=== PATIENT | female | born 1980 | race African-American/Black ===

== ENCOUNTER 2018-06-28 17:19 | Emergency (ER) | payer MEDICAID ==
[~2018-06-28] VITALS: Ht 172.7 cm; Wt 100.0 kg
[2018-06-28 17:39] VITALS: BP 247/140
== END 2018-06-28 20:50 | disposition left against medical advice (07) ==
LOC: ER 17:35
DX: H92.02 Otalgia, left ear (principal); Z53.21 Procedure and treatment not carried out due to patient leaving prior to being seen by health care provider

== ENCOUNTER 2018-11-19 17:36 | Emergency (ER) | payer OTHER, MEDICAID ==
[~2018-11-19] VITALS: Ht 170.2 cm; Wt 100.0 kg
[2018-11-19] MEDS ORDERED: ACETAMINOPHEN WITH CODEINE 300/30MG TABLET PO ONE (20:30)
[2018-11-19 21:06] VITALS: BP 182/94
== END 2018-11-19 21:26 | disposition home or self-care (01) ==
LOC: ER 19:02
DX: S62.665A Nondisplaced fracture of distal phalanx of left ring finger, initial encounter for closed fracture (principal); I10 Essential (primary) hypertension; Y04.0XXA Assault by unarmed brawl or fight, initial encounter; Y93.89 Activity, other specified; Y92.018 Other place in single-family (private) house as the place of occurrence of the external cause
CPT/HCPCS: 29130; 73140; 99283

== ENCOUNTER 2023-11-13 22:18 | Inpatient (IN) | payer OTHER, MEDICAID ==
[~2023-11-13] VITALS: Ht 177.8 cm; Wt 97.5 kg
[2023-11-13 23:06] LABS: CLARITY URINE CLEAR (CLEAR); COLOR URINE YELLOW (YELLOW); GLUCOSE URINE NEGATIVE (NEGATIVE); KETONES URINE NEGATIVE (NEGATIVE); LEUKOCYTE ESTERASE URINE NEGATIVE (NEGATIVE); NITRITE URINE NEGATIVE (NEGATIVE); OCCULT BLOOD URINE NEGATIVE (NEGATIVE); PROTEIN URINE 2+ (NEGATIVE); SPECIFIC GRAVITY URINE 1.013 (1.005-1.030); UROBILINOGEN URINE 0.2 E.U./dL (0.2-1.0)
[2023-11-13 23:14] LABS: *AMPHETAMINES SCREEN URINE NEGATIVE (NEGATIVE); *BARBITURATES SCREEN URINE NEGATIVE (NEGATIVE); *BENZODIAZEPINES SCREEN URINE NEGATIVE (NEGATIVE); *COCAINE SCREEN URINE NEGATIVE (NEGATIVE)
[2023-11-13 23:15] LABS: EOSINOPHILS % 1.5 % (0.0-5.0); HEMATOCRIT. 37.3 % (36.0-48.0); HEMOGLOBIN. 11.9 g/dL (12.0-16.0); LYMPHOCYTES % 26.8 % (20.0-50.0); MEAN CORPUSCULAR HEMOGLOBIN 28.3 pg (28.0-32.0); MEAN CORPUSCULAR HGB CONC 31.9 g/dL (31.0-37.0); MEAN CORPUSCULAR VOLUME 88.7 fL (81.0-99.0); MEAN PLATELET VOLUME 8.3 fl (7.4-10.4); MONOCYTES % 4.8 % (2.0-8.0); NEUTROPHILS % 65.9 % (40.0-76.0); PLATELET 385 x1000/uL (130-400); RED BLOOD CELL COUNT 4.21 mill/uL (4.2-5.4); RED CELL DISTRIBUTION WIDTH 14.8 % (11.6-14.6); WHITE BLOOD COUNT 7.5 x1000/uL (4.5-11.0)
[2023-11-13 23:15] LABS: CANNABINOID URINE SCREEN NEGATIVE (NEGATIVE); ECSTASY MDMA SCREEN URINE NEGATIVE (NEGATIVE); METHADONE URINE SCREEN NEGATIVE (NEGATIVE); OPIATES URINE SCREEN NEGATIVE (NEGATIVE); PHENCYCLIDINE URINE SCREEN NEGATIVE (NEGATIVE)
[2023-11-13] MEDS: LABETALOL 5MG/ML 4ML INJ IV ONE (23:17)
[2023-11-13 23:20] LABS: CHLORIDE 104 mEq/L (98-107); POTASSIUM 3.2 mEq/L (3.5-5.1); SODIUM 137 mEq/L (136-145)
[2023-11-13 23:21] LABS: CARBON DIOXIDE 25 mEq/L (21-32)
[2023-11-13 23:22] LABS: CALCIUM 9.8 mg/dL (8.7-10.4)
[2023-11-13 23:26] LABS: GLUCOSE 140 mg/dL (70-105); PROTHROMBIN TIME 10.7 sec (9.6-11.0)
[2023-11-13 23:27] LABS: TROPONIN I HIGH SENSITIVITY 25 ng/L (3.0-34); UREA NITROGEN BLOOD 14 mg/dL (9-23)
[2023-11-13 23:28] LABS: ALANINE AMINOTRANSFERASE 19 IU/L (10-49); ALBUMIN 5.1 g/dL (3.2-4.8); ASPARTATE AMINOTRANSFERASE 18 IU/L (<34)
[2023-11-13 23:29] LABS: BILIRUBIN TOTAL 0.3 mg/dL (0.1-1.0); PROTEIN TOTAL 8.6 g/dL (6.0-8.3)
[2023-11-13 23:34] LABS: BACTERIA URINE 1+; RBC URINE 0-2 /hpf (0-2); SQUAMOUS EPITHELIAL CELL URINE FEW /lpf (RARE/1+); WBC URINE 0-2 /hpf (0-2)
[2023-11-14 00:16] LABS: BILIRUBIN DIRECT < 0.1 mg/dL (<=3.0); ETHANOL BLOOD < 10 mg/dL (<10)
[2023-11-14] MEDS: LABETALOL 5MG/ML 4ML INJ IV NR (01:46)
[2023-11-14 01:49] LABS: TROPONIN I HIGH SENSITIVITY 28 ng/L (3.0-34)
[2023-11-14] MEDS: HYDRALAZINE 20MG/ML VIAL IV NR (03:55)
[2023-11-14] MEDS ORDERED: HYDROCHLOROTHIAZIDE 25MG TABLET PO SCH (05:30)
[2023-11-14] MEDS ORDERED: IPRATROPIUM/ALBUTEROL 0.5-3(2.5)MG/3ML NEB HHN PRN (05:30)
[2023-11-14] MEDS ORDERED: DOCUSATE SODIUM 100MG CAPSULE PO PRN (05:30)
[2023-11-14] MEDS ORDERED: NA PHOS,M-B/NA PHOS,DI-BA ENEMA 118ML PR PRN (05:30)
[2023-11-14] MEDS ORDERED: LISINOPRIL 5MG TABLET PO SCH (05:30)
[2023-11-14] MEDS ORDERED: ONDANSETRON HCL 4MG/2ML INJ IV PRN (05:30)
[2023-11-14] MEDS ORDERED: HYDROCODONE/ACETAMINOPHEN 5/325MG TABLET PO PRN (05:30)
[2023-11-14] MEDS ORDERED: MAGNESIUM/ALUMINUM HYDROXIDE/SIMETHICONE 30ML UDC PO PRN (05:30)
[2023-11-14] MEDS ORDERED: AMLODIPINE 10MG TABLET PO SCH (05:30)
[2023-11-14] MEDS ORDERED: GUAIFENESIN 200MG/10ML SUGAR FREE UDC PO PRN (05:30)
[2023-11-14] MEDS ORDERED: DEXTROSE 50% WATER 50ML SYRINGE IV PRN (06:00)
[2023-11-14 06:04] LABS: BASOPHILS % 1.2 % (0.0-2.0); EOSINOPHILS % 0.3 % (0.0-5.0); HEMATOCRIT. 37.8 % (36.0-48.0); HEMOGLOBIN. 12.4 g/dL (12.0-16.0); MEAN CORPUSCULAR HEMOGLOBIN 28.9 pg (28.0-32.0); MEAN CORPUSCULAR HGB CONC 32.9 g/dL (31.0-37.0); MEAN CORPUSCULAR VOLUME 87.9 fL (81.0-99.0); MEAN PLATELET VOLUME 8.1 fl (7.4-10.4); MONOCYTES % 3.6 % (2.0-8.0); NEUTROPHILS % 77.9 % (40.0-76.0); PLATELET 370 x1000/uL (130-400); RED CELL DISTRIBUTION WIDTH 14.7 % (11.6-14.6); WHITE BLOOD COUNT 8.6 x1000/uL (4.5-11.0)
[2023-11-14] MEDS: POTASSIUM CHLORIDE 20MEQ TABLET SR PO NR (06:10)
[2023-11-14 06:11] LABS: CALCIUM 9.7 mg/dL (8.7-10.4); CARBON DIOXIDE 24 mEq/L (21-32); CHLORIDE 104 mEq/L (98-107); POTASSIUM 3.4 mEq/L (3.5-5.1); SODIUM 136 mEq/L (136-145)
[2023-11-14] MEDS: HYDRALAZINE 20MG/ML VIAL IV PRN (06:12)
[2023-11-14 06:16] LABS: CREATININE 0.8 mg/dL (0.6-1.0); GLUCOSE 139 mg/dL (70-105); IRON 34 ug/dL (50-170)
[2023-11-14 06:17] LABS: LDL CHOLESTEROL 194 mg/dL (5-100); TRIGLYCERIDE 124 mg/dL (0-150); TROPONIN I HIGH SENSITIVITY 26 ng/L (3.0-34); UREA NITROGEN BLOOD 11 mg/dL (9-23)
[2023-11-14 06:18] LABS: ALANINE AMINOTRANSFERASE 18 IU/L (10-49); ASPARTATE AMINOTRANSFERASE 16 IU/L (<34); CHOLESTEROL 265 mg/dL (<200)
[2023-11-14 06:19] LABS: BILIRUBIN TOTAL 0.4 mg/dL (0.1-1.0); CREATINE KINASE 168 IU/L (34-145); HDL CHOLESTEROL 54 mg/dL (>65); PHOSPHORUS 2.6 mg/dL (2.5-4.9); PROTEIN TOTAL 8.4 g/dL (6.0-8.3); TOTAL IRON BINDING CAPACITY 388 ug/dl (250-425)
[2023-11-14 06:43] LABS: BILIRUBIN DIRECT < 0.1 mg/dL (<=3.0)
[2023-11-14] MEDS: ACETAMINOPHEN 325MG TABLET PO PRN ×2 (07:09→13:07)
[2023-11-14] MEDS: BLOOD SUGAR DIAGNOSTIC STRIP TEST SCH (09:00)
[2023-11-14] MEDS: CLONIDINE 0.1MG TABLET PO PRN (09:04)
[2023-11-14] MEDS: ASPIRIN 81MG EC TABLET PO SCH (09:12)
[2023-11-14] MEDS: THIAMINE HCL 100MG TABLET PO SCH (09:13)
[2023-11-14] MEDS: METOPROLOL TARTRATE 50MG TABLET PO SCH ×2 (09:13→17:58)
[2023-11-14] MEDS: HYDROCHLOROTHIAZIDE 25MG TABLET PO SCH (09:14)
[2023-11-14] MEDS: ENOXAPARIN 30MG/0.3ML SYR SUBCUT SCH (09:16)
[2023-11-14] MEDS: CLONIDINE 0.1MG TABLET PO SCH (13:00)
[2023-11-14] MEDS: LOSARTAN 100 MG TABLET PO SCH (13:03)
[2023-11-14 16:20] VITALS: BP 159/100; PULSE 89; RESP 18; TEMP 36.6696
[2023-11-14 16:56] VITALS: BP 151/105; PULSE 84; RESP 18; TEMP 36.6404
[2023-11-14 20:43] VITALS: BP 159/96; PULSE 86; RESP 16; TEMP 36.3918
[2023-11-14] MEDS: FAMOTIDINE 20MG TABLET PO SCH (20:47)
[2023-11-14] MEDS: ATORVASTATIN CALCIUM 40MG TABLET PO SCH (20:47)
[2023-11-14 22:20] LABS: TRIGLYCERIDE 128 mg/dL (0-150)
[2023-11-14 22:21] LABS: CREATINE KINASE MB FRACTION < 0.5 ng/mL (0.5-3.6); LDL CHOLESTEROL 182 mg/dL (5-100); TROPONIN I HIGH SENSITIVITY 23 ng/L (3.0-34)
[2023-11-14 22:22] LABS: CHOLESTEROL 241 mg/dL (<200); CREATINE KINASE 126 IU/L (34-145); HDL CHOLESTEROL 48 mg/dL (>65)
[2023-11-15 00:29] VITALS: BP 170/109; PULSE 83; RESP 19; TEMP 36.33624; O2SAT 100
[2023-11-15 04:00] VITALS: BP 188/103; PULSE 82; RESP 20; TEMP 36.28068; O2SAT 99
[2023-11-15 08:08] VITALS: BP 142/82; PULSE 80; RESP 20; TEMP 36.61404; O2SAT 98
[2023-11-15 11:49] VITALS: BP 141/86; PULSE 77; RESP 20; TEMP 36.50292; O2SAT 96
[2023-11-15 13:20] VITALS: BP 141/85; PULSE 79; TEMP 97.6; O2SAT 98
== END 2023-11-15 14:57 | disposition home or self-care (01) | DRG 305 ==
LOC: ER 22:18 → 5WST 11-14 01:31 → 7WST 11-14 15:59
PROVIDERS: ADMIT Internal Medicine; ATTEND Internal Medicine
DX: I16.1 Hypertensive emergency (principal); E78.5 Hyperlipidemia, unspecified; E11.9 Type 2 diabetes mellitus without complications; D64.9 Anemia, unspecified; Z20.822 Contact with and (suspected) exposure to COVID-19; I70.1 Atherosclerosis of renal artery; I49.9 Cardiac arrhythmia, unspecified; E87.6 Hypokalemia; I10 Essential (primary) hypertension; T50.995A Adverse effect of other drugs, medicaments and biological substances, initial encounter; Z79.899 Other long term (current) drug therapy; Y92.89 Other specified places as the place of occurrence of the external cause
CPT/HCPCS: 36415; 71045; 80048; 80061; 80076; 80305; 80320; 81003; 82550; 82553; 82728; 82962; 83036; 83540; 83550; 83735; 83880; 84100; 84443; 84484; 85025; 85044; 85379; 87426; 93005; 93306; 99285; J0360; J1650; J3490; G0480

== ENCOUNTER 2024-04-01 13:54 | Emergency (ER) | payer OTHER, MEDICAID ==
[~2024-04-01] VITALS: Ht 170.2 cm; Wt 97.0 kg
[2024-04-01 13:59] VITALS: O2SAT 98
[2024-04-01 14:10] VITALS: BP 183/115; PULSE 77; RESP 18; TEMP 98.3; O2SAT 100
[2024-04-01 15:14] LABS: BASOPHILS % 1.2 % (0.0-2.0); EOSINOPHILS % 0.7 % (0.0-5.0); HEMATOCRIT. 39.1 % (36.0-48.0); HEMOGLOBIN. 12.8 g/dL (12.0-16.0); LYMPHOCYTES % 16.3 % (20.0-50.0); MEAN CORPUSCULAR HEMOGLOBIN 30.1 pg (28.0-32.0); MEAN CORPUSCULAR HGB CONC 32.9 g/dL (31.0-37.0); MEAN CORPUSCULAR VOLUME 91.5 fL (81.0-99.0); MEAN PLATELET VOLUME 8.6 fl (7.4-10.4); MONOCYTES % 5.1 % (2.0-8.0); NEUTROPHILS % 76.7 % (40.0-76.0); PLATELET 342 x1000/uL (130-400); RED BLOOD CELL COUNT 4.27 mill/uL (4.2-5.4); RED CELL DISTRIBUTION WIDTH 14.6 % (11.6-14.6); WHITE BLOOD COUNT 8.1 x1000/uL (4.5-11.0)
[2024-04-01 15:15] LABS: CHLORIDE 100 mEq/L (98-107); POTASSIUM 3.8 mEq/L (3.5-5.1); SODIUM 135 mEq/L (136-145)
[2024-04-01 15:16] LABS: CARBON DIOXIDE 26 mEq/L (21-32)
[2024-04-01 15:21] LABS: GLUCOSE 147 mg/dL (70-105); UREA NITROGEN BLOOD 19 mg/dL (9-23)
== END 2024-04-02 00:08 | disposition left against medical advice (07) ==
LOC: ER 13:54
DX: I10 Essential (primary) hypertension (principal); Z98.890 Other specified postprocedural states; Z53.21 Procedure and treatment not carried out due to patient leaving prior to being seen by health care provider
CPT/HCPCS: 36415; 80048; 85025; 93005

== ENCOUNTER 2024-09-11 05:54 | Emergency (ER) | payer MEDICAID ==
[~2024-09-11] VITALS: Ht 172.7 cm; Wt 95.0 kg
[~2024-09-11 05:54] MED LIST: ATEN50TA PO; HYDR25TA78 MT; LIP40 MT; TRIA50CA2 PO
[2024-09-11 06:02] VITALS: O2SAT 100
[2024-09-11] MEDS ORDERED: T3 PO (06:36)
[2024-09-11] MEDS ORDERED: IBUP-2030 PO (06:36)
[2024-09-11] MEDS ORDERED: AMOX1TAB16 MT (06:36)
[2024-09-11] MEDS: KETOROLAC 15MG/ML VIAL IM ONE (06:49)
[2024-09-11 06:52] VITALS: BP 166/98; PULSE 80; RESP 20; TEMP 37; O2SAT 100
== END 2024-09-11 06:57 | disposition home or self-care (01) ==
LOC: ER 06:50
DX: K04.7 Periapical abscess without sinus (principal); I10 Essential (primary) hypertension; Z79.1 Long term (current) use of non-steroidal anti-inflammatories (NSAID); Z79.899 Other long term (current) drug therapy; Z90.710 Acquired absence of both cervix and uterus
CPT/HCPCS: 99283; 96372; J1885